=== PATIENT | male | born 1960 | race Hispanic/Latino ===

== ENCOUNTER 2019-03-11 07:17 | Observation (INO) | payer OTHER ==
[2019-03-11] MEDS ORDERED: Senokot S 8.6-50 MG TAB PO PRN (08:26)
[2019-03-11] MEDS ORDERED: Acetaminophen 325 MG TAB PO PRN (08:26)
[2019-03-11] MEDS ORDERED: diphenhydrAMINE 50 MG/ML VIAL IVP PRN (08:27)
[2019-03-11] MEDS ORDERED: hydrALAZINE 20 MG/ML VIAL SLOW IVP PRN (08:36)
--- NOTE | 2019-03-11 08:54 | HP ---
CHIEF COMPLAINT: Left-sided tongue swelling. HISTORY OF PRESENT ILLNESS: The patient is a 58-year-old male, who is currently on lisinopril, who presents to the hospital with complaints of lip swelling x1 day. The patient stated that he woke up this morning around 3:00 a.m., felt to go to the bathroom when he noticed the left side of his tongue felt strange and when he looked in the mirror, he noticed some thickening and some swelling. The patient denies any respiratory symptoms. He did state that he did have some difficulty talking. At this time, he took himself to an outside ER from where he was transferred here for further evaluation. The patient did receive a Pepcid and also some prednisone and was transferred here for further evaluation. The patient stated that he has been on lisinopril for about 5 to 6 years. PAST MEDICAL HISTORY: Hypertension, high cholesterol. PAST SURGICAL HISTORY: None. FAMILY HISTORY: Diabetes. ALLERGIES: HE IS CURRENTLY NOW ALLERGIC TO VALERIE. PRIOR TO THAT, NO KNOWN ALLERGIES. SOCIAL HISTORY: He denies any alcohol use, smoking use, or drug use. 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 He is a full code. REVIEW OF SYSTEMS: All negative except for the ones mentioned above in the HPI. PHYSICAL EXAMINATION: VITAL SIGNS: Are as of the following; temperature of 97.5, oxygen saturation 97 on room air, respiratory rate 14, pulse 83, and blood pressure 173/97. GENERAL: He is awake, alert, and oriented x3. Does not appear in any distress. HEENT: The patient does have some tongue thickening. Does have some swelling on the left side of his facial area. NECK: No lymph nodes are palpable. CARDIOVASCULAR: S1 and S2 present. No murmurs, rubs, or gallops. LUNGS: Clear to auscultation. No rhonchi or wheezes noted. ABDOMEN: Soft, obese. Bowel sounds are present x2. EXTREMITIES: No edema. Pedal pulses are present x2. NEUROVASCULAR: There are no focal deficits noted. SKIN: No cuts, lesions, or bruises noted. LABORATORY RESULTS: As of the following; WBC of 7.8, hemoglobin of 13.3, hematocrit of 41.8, and platelets of 343. Chemistries; sodium of 140, potassium 4.1, BUN 11, and creatinine of 0.79. LFTs are normal. ASSESSMENT AND PLAN: The patient is a very pleasant 58-year-old male, who presents to the hospital with complaints of left-sided facial swelling. 1. Angioedema, most likely secondary to his lisinopril. We will hold lisinopril. We will add it as his allergy and we will continue the Pepcid and the prednisone. We will put the patient on a clear liquid diet, advance as tolerated once he is feeling well. Also, we will start him on additional blood pressure medications. The patient also will receive 2 units of FFPs. The patient states that he feels well, much improved than since he came in. 2. Hypertension. We will start the patient on maybe Norvasc for better blood pressure control. 3. Obesity. Advised the patient to weight loss and diet and exercise. 4. Deep venous thrombosis prophylaxis. We will put the patient on some SCDs or heparin subcu. Job ID: [id number]
[2019-03-11] MEDS: Famotidine 20 MG TAB PO SCH ×2 (10:18→20:31)
[2019-03-11] MEDS: Amlodipine 10 MG TAB PO SCH (10:18)
[2019-03-11] MEDS: Heparin 5,000 UNITS/ML VIAL SC SCH ×3 (10:18→20:31)
[2019-03-11 10:40] VITALS: BMI 44.2
[2019-03-11] MEDS ORDERED: Benzonatate 100 MG CAP PO PRN (21:00)
[2019-03-12 06:56] LABS: #Lymphocytes 3.1 thou/uL (1.20-3.40); #Monocytes 0.6 thou/uL (0.11-0.59); %Basophils 0.1 % (0.0-1.0); %Eosinophils 0.3 % (0.0-10.0); %Lymphocytes 19.5 % (21.0-51.0); %Neutrophils 76.1 % (42.0-75.0); Hemoglobin 12.8 g/dL (14.0-18.0); Mean Corpuscular HGB CONC 32.7 g/dL (32.0-36.0); Mean Corpuscular Hemoglobin 29.7 pg (27.0-31.0); Mean Corpuscular Volume 90.9 fL (78.0-98.0); Mean Platelet Volume 6.3 fL (7.4-10.4); Platelet Count 371 thou/uL (130-400); RBC Distribution Width 12.4 % (11.5-14.5); Red Blood Cell (RBC) Count 4.31 mill/uL (4.70-6.10); White Blood Cell (WBC) Count 15.7 thou/uL (4.8-10.8)
[2019-03-12 07:20] LABS: Anion Gap 11 mmol/L (10-20); BUN (Urea Nitrogen) 13 mg/dL (8.4-25.7); Calc. Creatinine Clearance 189 mL/min (70-130); Carbon Dioxide 28 mmol/L (22-29); Chloride 102 mmol/L (98-107); Estimated GFR-MDRD Greater than 90; Glucose 98 mg/dL (70-105); Potassium 4.2 mmol/L (3.5-5.1); Sodium 137 mmol/L (136-145)
[2019-03-12 07:28] VITALS: TEMP 97.7
[2019-03-12] MEDS: Famotidine 20 MG TAB PO SCH (07:37)
[2019-03-12] MEDS: Amlodipine 10 MG TAB PO SCH (07:37)
[2019-03-12] MEDS: Heparin 5,000 UNITS/ML VIAL SC SCH (07:40)
[2019-03-12] MEDS ORDERED: predniSONE 20 MG TAB PO SCH (08:00)
[2019-03-12] MEDS ORDERED: Hydrochlorothiazide 25 MG TAB PO SCH (09:00)
[2019-03-12 09:46] VITALS: BP 137/86
--- NOTE | 2019-03-13 12:36 | DIS ---
DATE OF ADMISSION: 03/11/2019 DATE OF DISCHARGE: 03/12/2019 CHIEF COMPLAINT: On admission, tongue swelling. DISCHARGE DIAGNOSES: 1. Angioedema, likely secondary to lisinopril. 2. Hypertension. 3. Obesity. 4. Mild microcytic anemia. BRIEF HOSPITAL COURSE: The patient is a 58-year-old gentleman with past medical history significant for hypertension and obesity, who presented to the ER after experiencing tongue swelling and numbness at home. The patient states that initially the tongue swelling began on the left side and then began to spread to the right side. He was having difficulty speaking and presented to the ER for further treatment. He presented to an outside ER for further workup and evaluation. He received Pepcid and prednisone at that facility, and then was transferred to the [facility] for further level of care. Pepcid and prednisone were continued through his hospital course. He also received 2 units of FFPs. The patient's symptoms were already resolving by the time he arrived at our facility. He was monitored closely overnight. His swelling completely resolved. He did not experience any respiratory distress or require intubation of any kind. This morning, he is conversing easily with his . He is back to baseline. He denies any chest pain or shortness of breath. After stopping his lisinopril, he was initiated on therapy with amlodipine. His blood pressure has been controlled on that medication, and he is experiencing no side effects. DISCHARGE DISPOSITION: Home. DISCHARGE CONDITION: Stable. DISCHARGE MEDICATIONS: 1. Amlodipine 10 mg daily. 2. Hydrochlorothiazide 25 mg daily. 3. Prednisone 20 mg q.a.m. x3 days. DISCHARGE INSTRUCTIONS: The patient has been counseled extensively on his new allergy of VALERIE inhibitors, and the gravity of his reaction, future reaction if he were to be placed back on that medicine. He should refrain from any VALERIE inhibitor or ARB in the future. He will follow up with his primary care physician as an outpatient. The care of this patient has been discussed with Dr. Pittman who agrees with care as outlined above. Job ID: [id number]
== END 2019-03-12 10:44 | disposition home or self-care (01) ==
LOC: ERS 07:17 → T4-A 09:33
PROVIDERS: ADMIT Internal Medicine; ATTEND Internal Medicine
DX: T78.3XXA Angioneurotic edema, initial encounter (principal); I10 Essential (primary) hypertension; D50.9 Iron deficiency anemia, unspecified; E66.9 Obesity, unspecified; E78.5 Hyperlipidemia, unspecified; Z68.41 Body mass index [BMI] 40.0-44.9, adult; Z88.8 Allergy status to other drugs, medicaments and biological substances; Z79.52 Long term (current) use of systemic steroids; Z79.899 Other long term (current) drug therapy
CPT/HCPCS: 36415; 80048; 85025; 86850; 86900; 86901; G0378; J1644; J7512